=== PATIENT | female | born 1955 | race Caucasian/White ===

== ENCOUNTER → 2019-03-16 | Outpatient (CLI) | payer OTHER | END | disposition home or self-care (01) | LOC: RAH 12:33 | PROVIDERS: ATTEND Obstetrics & Gynecology | DX: N63.23 Unspecified lump in the left breast, lower outer quadrant (principal) | CPT/HCPCS: 76641; 77066 ==

== ENCOUNTER 2020-01-22 06:06 | Emergency (ER) | payer OTHER ==
[2020-01-22 06:37] LABS: APPEARANCE,URINE Cloudy (CLEAR); BILIRUBIN,URINE Negative (NEGATIVE); COLOR,URINE Orange (YELLOW); GLUCOSE, URINE (UA) Negative (NEGATIVE); KETONES,URINE Negative (NEGATIVE); LEUKOCYTE ESTERASE ,URINE Trace (NEGATIVE); NITRATE,URINE Negative (NEGATIVE); OCCULT BLOOD,URINE Large (NEGATIVE); PROTEIN,URINE POS 2+ mg/dL (NEGATIVE); UROBILINOGEN,URINE 0.2 mg/dL (0.2-1.0)
[2020-01-22] MEDS ORDERED: ONDANSETRON HCL 4 MG/2 ML VIAL ONE (06:48)
[2020-01-22] MEDS ORDERED: FENTANYL CITRATE PF 50 MCG/1 ML 2ML VIAL ONE (06:49)
[2020-01-22] MEDS ORDERED: SODIUM CHLORIDE 0.9% 1000ML 1,000 ML IV ONE (06:49)
[2020-01-22 06:57] LABS: BASOPHILS % (AUTO) 0.4 % (0.0-5.0); EOSINOPHILS % (AUTO) 0.1 % (0.0-8.0); HEMATOCRIT 44.7 % (36-48); MEAN CORPUSCULAR HEMOGLOBIN 28.5 pg (27.0-33.0); MEAN CORPUSCULAR HGB CONC 33.1 g/dL (32.0-36.0); MEAN CORPUSCULAR VOLUME 86.1 fL (79-99); MONOCYTES % (AUTO) 5.9 % (3.0-13.0); NEUTROPHILS % (AUTO) 83.3 % (40.0-77.0); PLATELET COUNT (AUTO) 228 K/uL (130-400); RED BLOOD CELL COUNT(AUTO) 5.19 MIL/uL (4.00-5.50); RED CELL DISTRIBUTION WIDTH 12.8 % (11.0-15.5); WHITE BLOOD COUNT (AUTO) 11.1 K/uL (4.8-10.8)
[2020-01-22 07:23] LABS: CREATININE 1.1 mg/dL (0.5-1.5); POTASSIUM 3.5 mmol/L (3.5-5.1)
[2020-01-22 07:28] LABS: ALBUMIN 3.9 g/dL (3.5-5.0); BILIRUBIN,TOTAL 0.9 mg/dL (0.2-1.0); TOTAL PROTEIN, SERUM 7.4 g/dL (6.0-8.3)
[2020-01-22 07:51] LABS: BACTERIA,URINE None Seen /HPF (None Seen); RBC,URINE >100 /HPF (0-1); SQUAMOUS EPITHELIAL CELL,UR 0-2 /HPF (0-2)
[2020-01-22] MEDS ORDERED: KETOROLAC TROMETHAMINE 15MG/ML ONE (07:57)
[2020-01-22] MEDS ORDERED: TRAMADOL HCL 50 MG TABLET ONE (08:57)
== END 2020-01-22 09:36 | disposition home or self-care (01) ==
LOC: EDH 06:06
DX: N20.1 Calculus of ureter (principal); N13.4 Hydroureter; R11.2 Nausea with vomiting, unspecified; E03.9 Hypothyroidism, unspecified; Z91.041 Radiographic dye allergy status; Z88.2 Allergy status to sulfonamides
CPT/HCPCS: 36415; 74176; 80053; 81001; 85025; 96361; 96374; 96375; 99284; J1885; J2405; J3010; J7030

== ENCOUNTER → 2022-02-27 | Outpatient (CLI) | payer OTHER | END | disposition home or self-care (01) | LOC: RAH 15:34 | PROVIDERS: ATTEND Family Medicine | DX: Z12.31 Encounter for screening mammogram for malignant neoplasm of breast (principal); R92.1 Mammographic calcification found on diagnostic imaging of breast | CPT/HCPCS: 77067 ==

== ENCOUNTER 2025-07-27 08:08 | Emergency (ER) | payer OTHER ==
[~2025-07-27] VITALS: Ht 172.7 cm; Wt 85.7 kg
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
[2025-07-27 09:33] VITALS: BP 152/69; PULSE 81; RESP 20; TEMP 98.2; O2SAT 99
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
[2025-07-27] MEDS ORDERED: NAPR25PO2 PO (09:59)
[2025-07-27] MEDS ORDERED: NAPR-1194 PO (10:02)
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
--- NOTE | 2025-07-27 13:35 | EKG ---
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
== END 2025-07-27 10:18 | disposition home or self-care (01) ==
LOC: EDH 08:08
DX: R07.89 Other chest pain (principal); Z88.2 Allergy status to sulfonamides; Z88.8 Allergy status to other drugs, medicaments and biological substances; V89.2XXA Person injured in unspecified motor-vehicle accident, traffic, initial encounter; Y93.89 Activity, other specified; Y92.89 Other specified places as the place of occurrence of the external cause; Y99.8 Other external cause status
CPT/HCPCS: 99285; 71250; 73000; 96372; 93005; J1885